=== PATIENT | female | born 1990 | race Caucasian/White ===

== ENCOUNTER 2018-11-10 15:13 | Emergency (ER) | payer BC ==
[2018-11-10] MEDS ORDERED: Ondansetron 4 MG/2 ML SDV IVPUSH ONE (15:58)
[2018-11-10] MEDS ORDERED: Sodium Chloride 0.9% 1,000 ML IV ONE (15:58)
[2018-11-10] MEDS ORDERED: Ketorolac 30 MG/ML SDV IVPUSH ONE (15:58)
--- NOTE | 2018-11-10 16:07 | EDM.PDOC ---
ED HPI GENERAL MEDICAL PROBLEM - General Chief Complaint: Abdominal Pain Stated Complaint: FEVER Time Seen by Provider: 11/10/18 15:17 Source of Information: Reports: Patient History Limitations: Reports: No Limitations - History of Present Illness INITIAL COMMENTS - FREE TEXT/NARRATIVE: HISTORY AND PHYSICAL: History of present illness: Patient is a 28-year-old female who presents to the emergency room with complaints of abdominal cramping, nausea, vomiting and diarrhea. She states since waking up this morning she has had nausea and diarrhea, one episode of vomiting. Approximately 3 hours prior to arrival she started to develop abdominal cramping. Upon arrival to the emergency room she said she has started her menstrual period. Recently started a weightloss supplement; feels that may be related to her symptoms (took this morning). Patient denies any fever, chills, headache, change in vision, syncope or near syncope. Denies any chest pain, back pain, shortness of breath or cough. Denies any abdominal pain, nausea, vomiting, diarrhea, constipation or dysuria. Has not noted any blood in urine or stool. Patient has been eating and drinking appropriately. Review of systems: As per history of present illness and below otherwise all systems reviewed and negative. Past medical history: As per history of present illness and as reviewed below otherwise noncontributory. Surgical history: As per history of present illness and as reviewed below otherwise noncontributory. Social history: See social history for further information Family history: As per history of present illness and as reviewed below otherwise noncontributory. Physical exam: General: Developed and well-nourished 28-year-old female. Alert and oriented. Nontoxic appearing and in no acute distress. HEENT: Atraumatic, normocephalic, pupils equal and reactive bilaterally, negative for conjunctival pallor or scleral icterus, mucous membranes moist, trachea midline. No drooling or trismus noted. No meningeal signs. No hot potato voice noted. Lungs: Clear to auscultation, breath sounds equal bilaterally, chest nontender. Heart: S1S2, regular rate and rhythm without overt murmur Abdomen: Soft, nondistended, nontender. Negative for masses. Negative for costovertebral tenderness. Pelvis: Stable nontender. Skin: Intact, warm, dry. No lesions or rashes noted. Extremities: Atraumatic, moves all extremities per self without difficulty or deficits, negative for cords or calf pain. Neurovascular unremarkable. Neuro: Awake, alert, oriented. Cranial nerves II through XII unremarkable. Cerebellum unremarkable. Motor and sensory unremarkable throughout. Exam nonfocal. Notes: Patient does have an elevated white count, we will proceed with a CT of the abdomen and pelvis. CT of the abdomen and pelvis shows no definitive findings. Patient's vital signs are stable. Symptoms have improved. Supportive care measures were reviewed and discussed. Voices understanding and is agreeable to plan of care. Denies any further questions or concerns at this time. Diagnostics: CBC, CMP, UA, HCGU, Lipase, CT abdomen/pelvis Therapeutics: IV fluids, Zofran, Toradol Prescription: Zofran Impression: Abdominal Pain Plan: 1. Rest, gentle heat and Tylenol/ibuprofen as needed for pain management. 2. Follow-up with your primary care provider or [facility] as we discussed. 3. Return to the ED as needed Definitive disposition and diagnosis as appropriate pending reevaluation and review of above. Pelvic Pain Score (Numeric/FACES): 3 - Related Data Allergies Allergy/AdvReac Type Severity Reaction Status Date / Time No Known Allergies Allergy Verified 11/10/18 15:18 Home Meds: Home Meds . [No Known Home Meds] 11/10/18 [History] Past Medical History - Past Health History Medical/Surgical History: Denies Medical/Surgical History - Infectious Disease History Infectious Disease History: Reports: Chicken Pox Social & Family History - Family History Family Medical History: Noncontributory - Tobacco Use Smoking Status *Q: Never Smoker - Caffeine Use Caffeine Use: Reports: Coffee, Other Other Caffeine Use: preworkout mix - Recreational Drug Use Recreational Drug Use: No ED ROS GENERAL - Review of Systems Review Of Systems: ROS reveals no pertinent complaints other than HPI. ED EXAM, RENAL/ - Physical Exam Exam: See Below (See dictation) Course - Vital Signs Last Recorded V/S: Last Vital Signs Temp 98.2 F 11/10/18 15:19 Pulse 69 11/10/18 17:54 Resp 24 H 11/10/18 15:19 BP 113/68 11/10/18 17:54 Pulse Ox 100 11/10/18 17:54 - Orders/Labs/Meds Labs: Laboratory Tests 07/28/19 07/28/19 07/28/19 Range/Units 16:07 16:07 16:19 WBC 13.48 H (4.0-11.0) K/uL RBC 4.42 (4.30-5.90) M/uL Hgb 13.9 (12.0-16.0) g/dL Hct 42.0 (36.0-46.0) % MCV 95.0 (80.0-98.0) fL MCH 31.4 (27.0-32.0) pg MCHC 33.1 (31.0-37.0) g/dL RDW Std Deviation 43.5 (28.0-62.0) fl RDW Coeff of Ruth 13 (11.0-15.0) % Plt Count 231 (150-400) K/uL MPV 10.60 (7.40-12.00) fL Neut % (Auto) 81.9 H (48.0-80.0) % Lymph % (Auto) 13.4 L (16.0-40.0) % Coffee % (Auto) 4.5 (0.0-15.0) % Eos % (Auto) 0.1 (0.0-7.0) % Baso % (Auto) 0.1 (0.0-1.5) % Neut # (Auto) 11.0 H (1.4-5.7) K/uL Lymph # (Auto) 1.8 (0.6-2.4) K/uL Coffee # (Auto) 0.6 (0.0-0.8) K/uL Eos # (Auto) 0.0 (0.0-0.7) K/uL Baso # (Auto) 0.0 (0.0-0.1) K/uL Nucleated RBC % 0.0 /100WBC Nucleated RBCs # 0 K/uL Sodium 139 (136-145) mmol/L Potassium 3.6 (3.5-5.1) mmol/L Chloride 105 (98-107) mmol/L Carbon Dioxide 24.9 (21.0-32.0) mmol/L BUN 21 H (7.0-18.0) mg/dL Creatinine 1.0 (0.6-1.0) mg/dL Est Cr Clr Drug Dosing 80.72 mL/min Estimated GFR (MDRD) > 60.0 ml/min Glucose 117 H (74-106) mg/dL Calcium 8.7 (8.5-10.1) mg/dL Total Bilirubin 0.6 (0.2-1.0) mg/dL AST 36 (15-37) IU/L ALT 46 (14-63) IU/L Alkaline Phosphatase 47 (46-116) U/L Total Protein 6.6 (6.4-8.2) g/dL Albumin 3.7 (3.4-5.0) g/dL Globulin 2.9 (2.6-4.0) g/dL Albumin/Globulin Ratio 1.3 (0.9-1.6) Lipase 160 (73-393) U/L Urine Color YELLOW Urine Appearance CLEAR Urine pH 6.0 (5.0-8.0) Ur Specific [place] 1.025 (1.001-1.035) Urine Protein TRACE H (NEGATIVE) mg/dL Urine Glucose (UA) NEGATIVE (NEGATIVE) mg/dL Urine Ketones 15 H (NEGATIVE) mg/dL Urine Occult Blood LARGE H (NEGATIVE) Urine Nitrite NEGATIVE (NEGATIVE) Urine Bilirubin NEGATIVE (NEGATIVE) Urine Urobilinogen 0.2 (<2.0) EU/dL Ur Leukocyte Esterase NEGATIVE (NEGATIVE) Urine RBC 4-6 (0-2/HPF) Urine WBC 0-1 (0-5/HPF) Ur Epithelial Cells FEW (NONE-FEW) Urine Bacteria FEW (NEGATIVE) Urine HCG, Qual (NEGATIVE) 11/10/18 Range/Units 16:19 WBC (4.0-11.0) K/uL RBC (4.30-5.90) M/uL Hgb (12.0-16.0) g/dL Hct (36.0-46.0) % MCV (80.0-98.0) fL MCH (27.0-32.0) pg MCHC (31.0-37.0) g/dL RDW Std Deviation (28.0-62.0) fl RDW Coeff of Ruth (11.0-15.0) % Plt Count (150-400) K/uL MPV (7.40-12.00) fL Neut % (Auto) (48.0-80.0) % Lymph % (Auto) (16.0-40.0) % Coffee % (Auto) (0.0-15.0) % Eos % (Auto) (0.0-7.0) % Baso % (Auto) (0.0-1.5) % Neut # (Auto) (1.4-5.7) K/uL Lymph # (Auto) (0.6-2.4) K/uL Coffee # (Auto) (0.0-0.8) K/uL Eos # (Auto) (0.0-0.7) K/uL Baso # (Auto) (0.0-0.1) K/uL Nucleated RBC % /100WBC Nucleated RBCs # K/uL Sodium (136-145) mmol/L Potassium (3.5-5.1) mmol/L Chloride (98-107) mmol/L Carbon Dioxide (21.0-32.0) mmol/L BUN (7.0-18.0) mg/dL Creatinine (0.6-1.0) mg/dL Est Cr Clr Drug Dosing mL/min Estimated GFR (MDRD) ml/min Glucose (74-106) mg/dL Calcium (8.5-10.1) mg/dL Total Bilirubin (0.2-1.0) mg/dL AST (15-37) IU/L ALT (14-63) IU/L Alkaline Phosphatase (46-116) U/L Total Protein (6.4-8.2) g/dL Albumin (3.4-5.0) g/dL Globulin (2.6-4.0) g/dL Albumin/Globulin Ratio (0.9-1.6) Lipase (73-393) U/L Urine Color Urine Appearance Urine pH (5.0-8.0) Ur Specific [place] (1.001-1.035) Urine Protein (NEGATIVE) mg/dL Urine Glucose (UA) (NEGATIVE) mg/dL Urine Ketones (NEGATIVE) mg/dL Urine Occult Blood (NEGATIVE) Urine Nitrite (NEGATIVE) Urine Bilirubin (NEGATIVE) Urine Urobilinogen (<2.0) EU/dL Ur Leukocyte Esterase (NEGATIVE) Urine RBC (0-2/HPF) Urine WBC (0-5/HPF) Ur Epithelial Cells (NONE-FEW) Urine Bacteria (NEGATIVE) Urine HCG, Qual NEGATIVE (NEGATIVE) Meds: Medications Discontinued Medications Generic Name Dose Route Start Last Admin Trade Name Freq PRN Reason Stop Dose Admin Sodium Chloride 1,000 mls @ 999 mls/hr 11/10/18 15:58 11/10/18 16:12 Normal Saline IV 11/10/18 16:58 999 mls/hr STAT ONE Administration Iopamidol 100 ml 11/10/18 17:36 11/10/18 17:37 Isovue Multipack-370 (76%) IVPUSH 11/10/18 17:37 100 ml ONETIME STA Administration Ketorolac Tromethamine 30 mg 11/10/18 15:58 11/10/18 16:12 Toradol IVPUSH 11/10/18 15:59 30 mg ONETIME ONE Administration Ondansetron HCl 4 mg 11/10/18 15:58 11/10/18 16:12 Zofran IVPUSH 11/10/18 15:59 4 mg ONETIME ONE Administration Departure - Departure Time of Disposition: 18:14 Disposition: Home, Self-Care 01 Clinical Impression: Abdominal pain Qualifiers: Abdominal location: lower abdomen, unspecified Qualified Code(s): R10.30 - Lower abdominal pain, unspecified - Discharge Information Instructions: Abdominal Pain, Adult, [id number] Referrals: PCP,None [Primary Care Provider] - Forms: ED Department Discharge, ED Department Discharge Additional Instructions: The following information is given to patients seen in the emergency department who are being discharged to home. This information is to outline your options for follow-up care. We provide all patients seen in our emergency department with a follow-up referral. The need for follow-up, as well as the timing and circumstances, are variable depending upon the specifics of your emergency department visit. If you don't have a primary care physician on staff, we will provide you with a referral. We always advise you to contact your personal physician following an emergency department visit to inform them of the circumstance of the visit and for follow-up with them and/or the need for any referrals to a consulting specialist. The emergency department will also refer you to a specialist when appropriate. This referral assures that you have the opportunity for follow-up care with a specialist. All of these measure are taken in an effort to provide you with optimal care, which includes your follow-up. Under all circumstances we always encourage you to contact your private physician who remains a resource for coordinating your care. When calling for follow-up care, please make the office aware that this follow-up is from your recent emergency room visit. If for any reason you are refused follow-up, please contact the [facility] Emergency Department at and asked to speak to the emergency department charge nurse. [facility] [address] [place] [id number] [address] 1. Rest, gentle heat and Tylenol/ibuprofen as needed for pain management. 2. Follow-up with your primary care provider or [facility] ASSIST[facility] as we discussed. 3. Return to the ED as needed
[2018-11-10 16:34] LABS: CHLORIDE,CL 105 mmol/L (98-107); SODIUM,NA 139 mmol/L (136-145)
[2018-11-10] MEDS ORDERED: Iopamidol 755 MG/ML 500 ML Multipack Bottle IVPUSH STA (17:36)
--- NOTE | 2018-11-10 18:12 | CT ---
INDICATION: Abdominal pain TECHNIQUE: CT abdomen and pelvis acquired with IV contrast. 100 mL of Isovue 370 administered. COMPARISON: None available FINDINGS: Lower chest: Unremarkable. Liver: Periportal edema, predominantly in the lateral segment of the left hepatic lobe, nonspecific. Spleen: Unremarkable. Pancreas: Unremarkable. Gallbladder and bile ducts: Apparent gallbladder sludge. Adrenal glands: Unremarkable. Kidneys: Unremarkable. GI tract: No mechanical bowel obstruction. Portions of a normal caliber appendix possibly seen, without significant regional inflammatory changes, although the appendix is not visualized in its entirety. No significant pericolonic changes. Vascular structures: Normal aortic caliber. Mild prominence of the parametrial and gonadal veins. Lymph nodes: Unremarkable. Miscellaneous: Small pelvic free fluid. No free air. Pelvic Organs: Mild bladder wall thickening, partially related to underdistention. No discrete uterine abnormality seen. Small right adnexal cystic foci measuring up to 1.5 cm. A tampon in the vagina. Bones: Unremarkable for age. IMPRESSION: No evidence of diverticulitis or bowel obstruction. Portions of a normal caliber appendix probably seen, although the appendix is not visualized in its entirety. Correlate clinically. If there is high clinical concern, repeat imaging of the pelvis, 1-2 hours following the administration of oral contrast can be considered. Bladder wall thickening, partially related to underdistention, however concerning for cystitis. Correlate with urinalysis. Periportal edema, more pronounced in the lateral segment of the left hepatic lobe, nonspecific. This may be seen with aggressive fluid resuscitation, however correlate with hepatic enzymes. Small pelvic free fluid. Mild prominence of the parametrial and gonadal veins. Correlate clinically to exclude mild pelvic congestion syndrome. Dictated by Luiz Sorenson MD @ 11/10/2018 6:10:58 PM Please note that all CT scans at this facility use dose modulation, iterative reconstruction, and/or weight-based dosing when appropriate to reduce radiation dose to as low as reasonably achievable. Dictated by: Luiz Sorenson MD @ 11/10/2018 18:11:34 (Electronically Signed)
== END 2018-11-10 18:23 | disposition home or self-care (01) ==
LOC: MW.ED 15:13
DX: R10.2 Pelvic and perineal pain (principal); R11.2 Nausea with vomiting, unspecified; R19.7 Diarrhea, unspecified
CPT/HCPCS: 36415; 74177; 80053; 81001; 81025; 83690; 85025; 96361; 96374; 96375; 99284; J1885; J2405; J7040; Q9967